=== PATIENT | female | born 1985 | race Caucasian/White ===

== ENCOUNTER → 2017-02-11 | Outpatient (CLI) | payer BC ==
[~2017-02-11] MED LIST: CARAFATE 1GM1 G PO; MIRENA52 MG IY; MOTRIN 200200 MG/TAB PO; PROTONIX 40MG T40 MG PO
== END ==
LOC: COL.CARD 07:50
DX: R00.2 Palpitations (principal)

== ENCOUNTER 2020-09-25 12:26 | Emergency (ER) | payer BC ==
[~2020-09-25] VITALS: Ht 170.2 cm; Wt 81.8 kg
[2020-09-25 12:56] VITALS: TEMP 99
[2020-09-25 14:19] LABS: BASO % 0.2 % (0.0-2.0); GRAN # 4.2 (1.4-6.5); GRAN % 66.6 % (42.2-75.2); HEMATOCRIT 46.5 % (37.0-47.0); HEMOGLOBIN 15.5 g/dl (12.5-16.0); LYMPH # 1.5 (1.2-3.4); LYMPH % 23.7 % (20.0-51.0); MEAN CELL VOLUME 91 fl (80.0-100.0); MEAN CORPUSCULAR HEMOGLOBIN 30 pg (27.0-31.0); MEAN CORPUSCULAR HGB CONC 33 g/dl (33.0-37.0); MEAN PLATELET VOLUME 10.4 fl (7.4-10.4); MONO # 0.6 (0.1-0.6); MONO % 9.3 % (1.7-9.3); PLATELET COUNT 171 K/mm3 (130-400); RED BLOOD COUNT 5.14 M/mm3 (4.10-5.30); REDCELL DISTRIBUTION WIDTH-CV 12.8 % (11.5-14.5)
[2020-09-25 14:32] LABS: ALBUMIN 4.1 gm/dL (3.5-5.0); BILIRUBIN,TOTAL 0.3 mg/dL (0.0-1.0); CALCIUM 9.1 mg/dL (8.4-10.2); CREATININE, serum 0.79 (0.52-1.25); POTASSIUM 3.7 mmol/L (3.4-5.0)
[2020-09-25] MEDS ORDERED: ZITHROMAX Z PA250 MG PO (17:17)
[2020-09-25 17:34] VITALS: BP 127/77; PULSE 110
== END 2020-09-25 17:35 | disposition home or self-care (01) ==
LOC: COL.ER 12:26
PROVIDERS: Family Medicine
DX: U07.1 COVID-19 (principal); J12.82 Pneumonia due to coronavirus disease 2019
CPT/HCPCS: J1100

== ENCOUNTER → 2021-01-19 | Outpatient (CLI) | payer BC ==
[~2021-01-19] MED LIST changes: +ZITHROMAX Z PA250 MG PO
== END ==
LOC: COL.RAD 12:02
DX: R51.9 Headache, unspecified (principal); M54.2 Cervicalgia
CPT/HCPCS: A9585